=== PATIENT | male | born 1950 | race Caucasian/White ===

== ENCOUNTER 2016-05-11 06:32 | Emergency (ER) | payer MEDICARE ==
[2016-05-11 07:03] LABS: Hematocrit 46.6 % (42.0-52.0); Hemoglobin 15.9 gm/dL (13.5-18.0); Mean Cell Volume 87.8 fl (78-100); Mean Corpuscular Hemoglobin 29.9 pg (27-31); Mean Corpuscular Hgb Conc 34.1 g/dl (32-36); Mean Platelet Volume 8.3 fl (6.0-9.5); Neutrophil # 2.4 K/mm3 (1.3-6.0); Neutrophil % 48.4 % (42-75.0); Platelet Count 178 K/mm3 (150-450); Red Blood Count 5.31 M/mm3 (4.7-6.0); Red Cell Distribution Width 12.2 % (11.5-14.0)
[2016-05-11] MEDS ORDERED: ACETAMINOPHEN 325 MG TABLET PO ONE (07:03)
--- NOTE | 2016-05-11 07:05 | ERNOTE ---
Chest Pain/Cardiac HPI Date of Service: 05/11/16 Chief Complaint: Chest Pain Source: patient Immunizations: IMMUNIZATION HX Immunizations Comment shingles immunization History of Influenza Vaccine Yes Allergies/Adverse Reactions: Allergies Penicillins Allergy (Verified 05/11/16 06:43) possible allergy Home Medications: HOME MEDICATIONS Aspirin [Garry Chewable Aspirin] 81 mg PO HS 01/18/13 [Last Taken 01/17/13 21:00 ] Atenolol/Chlorthalidone [Tenoretic 100 Tablet] 50 mg PO DAILY 01/18/13 [Last Taken 01/17/13 18:00] Enalapril Maleate [Vasotec] 20 mg PO DAILY 01/18/13 [Last Taken 01/17/13 12:00] Fexofenadine HCl [Isabela] 30 mg PO DAILY 01/18/13 [Last Taken 01/18/13 05:30] Potassium Chloride [Klor-Con] 10 meq PO BID 01/18/13 [Last Taken 01/18/13 05:30] Simvastatin [Zocor] 40 mg PO HS 01/18/13 [Last Taken 01/17/13 20:00] Olopatadine HCl [Patanase] 30.5 gm NS DAILY 09/18/13 [Last Taken Unknown] Omeprazole [Prilosec] 20 mg PO DAILY 03/28/16 [Last Taken Unknown] Zolpidem Tartrate [Ambien] 5 mg PO HS 03/28/16 [Last Taken Unknown] Narrative: 66 year old that had experienced substernal chest pain yesterday at 1800 hours which resolved. This morning he noticed mild upper midback pain that he has had intermittently for several years. No pain medications were taken this morning prior to being seen in the ED. The pain typically aggravated by him working out with weights, that he does several times per day. His routine is doing curls and bench presses several times during the day. Typically walks 5-6 miles per day without difficulty. His primary care physician has scheduled a cardiac stress test. The patient admits to having anxiety and does not have any previous history of heart disease. Date (Duration): 05/11/16 Timing: constant Severity/Quality: mild Location: back Body Front/Back Adult: 1 - Area of pain Chest Pain Radiation: other - to chest Activities at Onset: none Modifying Factors - Improves: Present: other - none Modifying Factors - Worsens: Present: other - movement Nitro Today/Relief: no nitro taken today Associated Symptoms: Present: back pain Prior Chest Pain/Cardiac Workup: Reports: prior chest pain Review of Systems - Review of Systems Constitutional: Present: no symptoms reported EYE: Present: no symptoms reported ENT: Present: no symptoms reported Respiratory: Present: no symptoms reported Cardiology: Present: See HPI Gastrointestinal/Abdominal: Present: no symptoms reported Genitourinary: Present: no symptoms reported Musculoskeletal: Present: no symptoms reported Skin: Present: no symptoms reported Neurological: Present: no symptoms reported Endocrine: Present: no symptoms reported Hematologic/Lymphatic: Present: no symptoms reported Psych: Present: anxiety - Patient's Past Medical History Patient History - Medical: Anxiety Patient History - Cardiac/Respiratory: Hypertension, Hyperlipidemia Patient History - Cancer: No Hx of Cancer Patient History - Surgical Procedures: No surgical history Patient History - Other: None - Social History Living Situations: home Smoking Status: Former smoker - Immunizations History of Influenza Vaccine: Yes Physical Exam - Physical Exam General Appearance: Present: no apparent distress Eye Exam: Normal inspection: bilateral Ears, Nose, Throat: Present: normal ENT inspection Neck: Present: normal inspection, supple Respiratory: Present: no respiratory distress Cardiovascular/Chest: Present: regular rate, rhythm Gastrointestinal/Abdominal: Present: nontender, nondistended, soft, no organomegaly Back Exam: Present: normal inspection, other - minmimal tenderness at the right praspinal musculature Neurological Exam: Present: alert, oriented, normal mood/affect, flame hardener II-XII nml as tested Skin Exam: Present: normal color ED Progress - Vital Signs Patient's Vital Signs:: I have reviewed the patient's vital signs. Vital Signs: Vital Signs 05/11/16 05/11/16 06:38 06:44 Temperature 36.2 C L Pulse Rate 55 L 58 L Respiratory 15 Rate Blood Pressure 177/83 O2 Sat by Pulse 98 Oximetry - EKG EKG: other EKG Comments: sinus dustin, rate 53, normal axis No significant change from the previous EKG. - X-Ray X-Ray #1 X-Ray: chest Interpretation: Interp. by me X-ray Comments: NAD - Progress/Reassessment Chief Complaint: Chest Pain Progress:: Unchanged Progress Note-Subjective: 05/11/16 07:32 The pain that he is having has been ongoing for several years and is due to muscle sprain in all likelyhood. He is encouraged to proceed with the cardiac stress test to better determine the etiology of the pain. Departure - Departure Clinical Impression: Back pain due to injury, Chest pain, musculoskeletal Disposition: Home self-care Condition: Good Instructions: Muscle Strain, [id number], Chest Wall Pain, [id number] Print Language: Eritrean Referrals: Chidi Mcdonald MD [Primary Care Provider] -
[2016-05-11] MEDS ORDERED: ACETAMINOPHEN 325 MG TABLET ONE (07:07)
[2016-05-11 07:21] LABS: Anion Gap 8.8 mmol/L (6.8-13.8); BUN/Creatinine Ratio 17.6 (9.0-21.6); Blood Urea Nitrogen 15 mg/dL (6-23); Calcium * 9.2 mg/dL (7.9-10.9); Carbon Dioxide 30.4 mmol/L (24-32.6); Chloride 106 mmol/L (97-106); Estimated Creat Clear 77.8; Glucose * 124 mg/dL (70-110); Potassium 4.2 mmol/L (3.4-4.6); Sodium 141 mmol/L (132-142); Troponin I Less than 0.017 ng/ml (0.00-0.10)
[2016-05-11 07:29] VITALS: BP 143/80
== END 2016-05-11 07:45 | disposition home or self-care (01) ==
LOC: ER 06:32
DX: S39.92XA Unspecified injury of lower back, initial encounter (principal); R07.89 Other chest pain; Z87.891 Personal history of nicotine dependence; Y93.B1 Activity, exercise machines primarily for muscle strengthening; I10 Essential (primary) hypertension

== ENCOUNTER 2016-07-15 12:27 | Day surgery (SDC) | payer MEDICARE ==
--- NOTE | 2016-07-10 15:17 | HP ---
Chief Complaint - Chief Complaint Date of Service: 07/10/16 Chief Complaint: need my colon checked again. Also still having problems with my stomach. History of Present Illness: 66 year old male who presents for a colonoscopy. No blood in stools. Usually constipated but two weeks ago had diarrhea. No history of polyps that he knows of and he has an uncle with colon cancer. He does not believe his parents had cancer, but both are . He cadena had some lower abdominal burning and cramps and that is not relieved by BMs. He has seen a urologist and had a CT and cystoscopy. (Both of which he says are normal. He also has a history of GERD and recent substernal burning was worked up with a stress test and this was normal, he says. He has been on omeprozole for at least 2 years and still has this "heartburn". He has not an an UGI and has not had symptoms of a cough or hoarseness. No particular foods set this off and a GB US was also done and was negative. He states he had a positive Hpylori in the past. - Patient's Past Medical History Patient History - Medical: Anxiety Patient History - Cardiac/Respiratory: Hypertension, Hyperlipidemia Patient History - Cancer: No Hx of Cancer Patient History - Surgical Procedures: Colonoscopy, EGD, Other - [facility] 1990, ENT - sinus - Family History Family History:: no untoward family reactions to anesthesia, no familial bleeding tendencies, no family history of clotting disorders - Family History Mother Family History - Medical: Family History - Cardiac/Respiratory: Myocardial Infarction Family History - Cancer: No pertinent family hx - Social History Living Situations: alone Psych History: Hx of Anxiety Does anyone smoke in the home?: No Smoking Status: Former smoker - 33 years ago Have you smoked in the past 12 months: No Alcohol Use: occasionally Drug Use: none - Immunizations Immunizations Up to Date: Yes Hx Pneumococcal Vaccination: Yes History of Influenza Vaccine: Yes Review Of Systems (GEN) - Review of Systems Generalized/Overall Review: Absent: Weakness, Chills, Fever, Malaise EENTM: Present: No Symptoms Reported Respiratory: Absent: Cough, Shortness of Breath, Stridor Cardiac: Absent: Chest Pain, Edema, Syncope Abdominal: Present: Abdominal Pain - lower abdominal burning, Constipation, Other - persistent GERD/ substernal burning Musculoskeletal: Present: Back Pain, Muscle Pain. Absent: Joint Pain Neurological: Absent: Headache, Anxiety, Depressed, Parasthesia, Weakness Skin: Absent: Dryness, Lesions, Lumps, Rash Endocrine: Absent: Intolerance to Cold Allergies/Adverse Reactions: Allergies Allergy/AdvReac Type Severity Reaction Status Date / Time Penicillins AdvReac Mild stomach Verified 07/10/16 15:46 ache Home Medications: HOME MEDICATIONS Aspirin [Garry Chewable Aspirin] 81 mg PO HS 01/18/13 [Last Taken 01/17/13 21:00 ] Atenolol/Chlorthalidone [Tenoretic 100 Tablet] 50 mg PO DAILY 01/18/13 [Last Taken 01/17/13 18:00] Enalapril Maleate [Vasotec] 20 mg PO DAILY 01/18/13 [Last Taken 01/17/13 12:00] Fexofenadine HCl [Isabela] 30 mg PO DAILY 01/18/13 [Last Taken 01/18/13 05:30] Potassium Chloride [Klor-Con] 10 meq PO BID 01/18/13 [Last Taken 01/18/13 05:30] Simvastatin [Zocor] 40 mg PO HS 01/18/13 [Last Taken 01/17/13 20:00] Olopatadine HCl [Patanase] 30.5 gm NS DAILY 09/18/13 [Last Taken Unknown] Omeprazole [Prilosec] 20 mg PO DAILY 03/28/16 [Last Taken Unknown] Zolpidem Tartrate [Ambien] 5 mg PO HS 03/28/16 [Last Taken Unknown] Exam - Exam Vital Signs: Vital Signs - Last Taken Temp 36.2 C L 07/10/2016 Pulse 65 Resp BP 130/80 07/10/16 Pulse Ox HT 5'7 WT 70kg Constitutional: Present: Alert, Oriented x3, Cooperative, Well developed, No distress ENT Exam: Present: normal ENT inspection Eye Exam: bilateral eye: normal inspection Back Exam: Present: normal inspection, no CVA tenderness, no vertebral tenderness Breasts: Present: Exam deferred Respiratory: Present: lungs clear, normal breath sounds, no respiratory distress , no accessory muscle use Cardiovascular/Chest: Present: regular rate, rhythm, no edema, no gallop, no JVD , no murmur Abdomen: Present: Normal bowel sounds, soft, nontender, nondistended, no rebound tenderness, hernia - RIH ,reducible, small /Rectal: Present: External genitalia normal Extremity: Present: normal range of motion, non-tender, normal inspection, no pedal edema Skin Exam: Present: normal color, warm/dry, no cyanosis Lymphatic: Present: no adenopathy - groin, inguinal node tender (L) Neurologic: Present: alert, normal mood/affect Appearance: Present: appropriate appearance, appropriate insight, neat, no memory impairment Eye contact: Present: cooperative, good eye contact, normal speech Thoughts: Present: normal thought pattern, no apparent hallucination Assessment/Plan - Narrative Narrative: [facility]IC discussed for an EGD and colonoscopy with possible biopsies and polypectomy. He understands. The prep was discussed. He will do a single day, split prep because he is an afternoon case. - Assessment/Plan (1) Screening for colon cancer Problem: Acute (2) GERD (gastroesophageal reflux disease) Problem: Chronic Qualifiers: Esophagitis presence: esophagitis presence not specified Qualified Code(s) : K21.9 - Gastro-esophageal reflux disease without esophagitis (3) Chest pain, musculoskeletal Problem: Resolved (4) Hypertension Problem: Chronic
[~2016-07-15 12:27] MED LIST: RINGERS SOLUTION,LACTATED 1,000 ML IV PRN
[2016-07-15] MEDS ORDERED: RINGERS SOLUTION,LACTATED 1,000 ML IV PRN (14:02)
--- NOTE | 2016-07-15 14:07 | OR ---
Operative Report - Dictated Report Narrative: DATE: 07/15/2016 PREOPERATIVE DIAGNOSIS: Persistent GERD, screening colonoscopy POSTOPERATIVE DIAGNOSIS: #1 same as above #2 H. pylori pending #3 scattered small amount of sigmoid diverticulosis PROCEDURE: #1 ESOPHAGOGASTRODUODENOSCOPY with biopsy #2 COLONOSCOPY SURGEON: Ankur Vincent M.D. [facility] ANESTHESIA: Gm Lugo CRNA SEDATION INDICATIONS. This is a 66-year-old male who presents with a persistent GERD despite maximal medical therapy and in need of colonoscopy. Risk, benefits, indications and contra indications were discussed with the patient for an EGD with possible biopsy and colonoscopy with possible biopsy and/or polypectomy. The patient understood and agreed and wished to proceed. The patient tolerated the SUPREP well. Procedure: The patient was brought into the operating room theater and placed into the left lateral decubitus position. A bite block was placed and he was given sedation per MABEL. After adequate sedation was obtained, the [employer]oat video gastroscope was introduced and advanced into the pharynx. This appeared to be normal. The vocal cords were seen to be normal. Scope was advanced into the esophagus under direct visualization. The scope was advanced through the esophagus, which was otherwise unremarkable. The GE junction was noted at approximately 40 cm. The scope was advanced through the GE junction into the stomach. The stomach had a relatively normal appearance with no antritis. There was no obvious signs of recent or old bleeding, no signs of ulceration, and there was no obvious abnormalities noted within the stomach body or antrum. The scope was retroflexed and the upper stomach appeared to be normal. GE junction appeared to be normal and no hiatal hernia was noted. The endoscope was then advanced through a somewhat tight pylorus into the pyloric channel , which was normal, and then into an otherwise normal second and third portions of the duodenum. Multiple pictures were taken. The scope was then withdrawn slowly. Biopsy of the antrum was taken for H. pylori. Once again the scope was retroflexed and pictures taken. The Scope was then removed slowly through the stomach and, ultimately at the GE junction, the stomach was decompressed. The GE junction was examined closely. Pictures were taken. The scope was then removed through an otherwise normal-appearing esophagus. Once the scope was removed completely, the patient remained in the left lateral decubitus position and the cart was turned for the colonoscopy. A digital rectal exam was performed. This was noted to be unremarkable. The patient was noted to have no internal or external hemorrhoids. The Olympus video colonoscope was introduced and advanced into the rectum. The rectum was normal in appearance. The scope was then advanced through the sigmoid, where no diverticular disease was noted. The scope was then advanced to the cecum using standard reduction techniques. The prep appeared to be excellent with a [place] prep score of 9. The scope was withdrawn slowly as the ascending, transverse, descending, and sigmoid colon were examined in a circumferential fashion. There were just a few diverticular openings noted in the upper sigmoid. The scope was brought back into the rectum where it was retroflexed and the lower rectum was examined. No internal hemorrhoids were noted. The air was decompressed, and the scope was then removed. Withdrawal time was 10 minutes. POSTOPERATIVE CONDITION: The patient was awakened and taken to the ambulatory surgery center in good condition. No complications were encountered. FINDINGS: Essentially negative upper GI endoscopy, and lower colonoscopy. SPECIMEN: Single biopsy for H. pylori EBL: 0 mls The findings were discussed with the patient. I recommend a follow-up colonoscopy in 10 years for screening purposes. We will call in 48 hours with the biopsy results.
[2016-07-15 15:10] VITALS: BP 151/72
== END 2016-07-15 12:28 | disposition home or self-care (01) ==
LOC: AMB 12:27
PROVIDERS: ATTEND Surgery
PROC: 0DJD8ZZ Inspection of Lower Intestinal Tract, Via Natural or Artificial Opening Endoscopic (ICD-10-PCS; principal; 2016-07-15 13:50)
PROC: 0DB68ZX Excision of Stomach, Via Natural or Artificial Opening Endoscopic, Diagnostic (ICD-10-PCS; 2016-07-15 13:50)
DX: Z12.11 Encounter for screening for malignant neoplasm of colon (principal); K21.9 Gastro-esophageal reflux disease without esophagitis; K57.30 Diverticulosis of large intestine without perforation or abscess without bleeding; I10 Essential (primary) hypertension; E78.5 Hyperlipidemia, unspecified; F41.9 Anxiety disorder, unspecified; Z87.891 Personal history of nicotine dependence; Z68.24 Body mass index [BMI] 24.0-24.9, adult
CPT/HCPCS: 43239; 87081; G0121

== ENCOUNTER 2016-10-07 06:27 | Day surgery (SDC) | payer MEDICARE, OTHER ==
--- NOTE | 2016-10-01 16:43 | HP ---
Chief Complaint - Chief Complaint Date of Service: 10/01/16 Chief Complaint: I would like my hernia fixed History of Present Illness: 66 year old male with an enlarging, but reducible, right inguinal hernia. He has noticed it for many months, but it is getting larger and now more bothersome with activities. He is active and walks 5 miles a day, also does exercises, lifts weights and does about 100 sit ups a day. No symptoms of incarceration, nor constipation, and he had a left inguinal hernia repair about 30 years ago. - Patient's Past Medical History Patient History - Medical: Anxiety Patient History - Cardiac/Respiratory: Hypertension, Hyperlipidemia Patient History - Cancer: No Hx of Cancer Patient History - Surgical Procedures: Colonoscopy, EGD, Other, ENT, Hernia Repair - left Patient History - Other: None - Family History Family History:: no untoward family reactions to anesthesia, no familial bleeding tendencies, no family history of clotting disorders - Family History Mother Family History - Medical: , No pertinent hx Family History - Cardiac/Respiratory: No pertinent hx, Myocardial Infarction Family History - Cancer: No pertinent family hx - Social History Living Situations: alone Abuse History: No History of abuse Psych History: Hx of Anxiety Does anyone smoke in the home?: No Alcohol Use: occasionally Drug Use: none - Immunizations Immunizations Up to Date: Yes Hx Pneumococcal Vaccination: Yes History of Influenza Vaccine: Yes Review Of Systems (GEN) - Review of Systems Generalized/Overall Review: Absent: Weakness, Chills, Malaise, Weight loss, Weight gain EENTM: Absent: Blurred Vision Respiratory: Absent: Cough, Shortness of Breath, Wheezing Cardiac: Absent: Chest Pain, Edema, Palpitations Abdominal: Absent: Nausea, Vomiting, Abdominal Pain, Constipation, Diarrhea Genitourinary: Absent: Burning Musculoskeletal: Absent: Joint Pain, Joint Swelling Neurological: Present: Anxiety. Absent: Headache, Depressed, Parasthesia, Tremors Skin: Absent: Dryness Immunizations: IMMUNIZATION HX Immunizations Up to Date Yes History of Influenza Vaccine Yes Hx Pneumococcal Vaccination Yes Allergies/Adverse Reactions: Allergies Allergy/AdvReac Type Severity Reaction Status Date / Time Penicillins AdvReac Mild stomach Verified 07/15/16 12:54 ache Home Medications: HOME MEDICATIONS Aspirin [Garry Chewable Aspirin] 81 mg PO HS 01/18/13 [Last Taken 01/17/13 21:00 ] Atenolol/Chlorthalidone [Tenoretic 100 Tablet] 50 mg PO DAILY 01/18/13 [Last Taken 01/17/13 18:00] Enalapril Maleate [Vasotec] 20 mg PO DAILY 01/18/13 [Last Taken 01/17/13 12:00] Fexofenadine HCl [Isabela] 30 mg PO DAILY 01/18/13 [Last Taken 01/18/13 05:30] Potassium Chloride [Klor-Con] 10 meq PO BID 01/18/13 [Last Taken 01/18/13 05:30] Simvastatin [Zocor] 40 mg PO HS 01/18/13 [Last Taken 01/17/13 20:00] Olopatadine HCl [Patanase] 30.5 gm NS DAILY 09/18/13 [Last Taken Unknown] Omeprazole [Prilosec] 20 mg PO DAILY 03/28/16 [Last Taken Unknown] Zolpidem Tartrate [Ambien] 5 mg PO HS 03/28/16 [Last Taken Unknown] Tadalafil [Cialis] 5 mg PO DAILY PRN 07/15/16 [Last Taken Unknown] Exam - Exam Vital Signs: Vital Signs - Last Taken Temp 36.4 C L 10/01/16 Pulse 75 Resp 15 BP 135/82 10/01/16 Pulse Ox Ht 5'7 Wt 150# Constitutional: Present: Alert, Oriented x3, Cooperative, Well developed, Looks Younger than stated age ENT Exam: Present: normal ENT inspection, hearing grossly normal Eye Exam: bilateral eye: normal inspection Respiratory: Present: chest non-tender, lungs clear, normal breath sounds, no respiratory distress, no accessory muscle use Cardiovascular/Chest: Present: normal peripheral pulses, regular rate, rhythm, no chest tenderness, no edema, no gallop, no JVD, no murmur Abdomen: Present: Normal bowel sounds, soft, nontender, nondistended, no rebound tenderness, no hepatospenomegaly, no masses, other - left, well healed groin scar and no recurrent inguinal hernia on left, hernia - right, medium sized, reducible /Rectal: Present: External genitalia normal Extremity: Present: normal range of motion, non-tender, normal inspection, no pedal edema, no calf tenderness Skin Exam: Present: normal color, warm/dry Neurologic: Present: no motor/sensory deficits, alert, normal mood/affect, oriented x 3 Appearance: Present: appropriate appearance, appropriate insight, neat Eye contact: Present: cooperative, good eye contact, normal speech Thoughts: Present: normal thought pattern Assessment/Plan - Narrative Narrative: He has a right inguinal hernia, enlarging and now more bothersome with daily activities....he is much more active than the normal 66 yo though. I discussed the risks and benefits of a inguinal hernia repair with mesh and he understands and agrees, and wishes to proceed. Bathing and hibiclens instructions, consent signed and cases scheduled for next week. - Assessment/Plan (1) Inguinal hernia Problem: Acute Qualifiers: Obstruction and gangrene presence: without obstruction or gangrene Laterality: unilateral Recurrence: non-recurrent Qualified Code(s): K40.90 - Unilateral inguinal hernia, without obstruction or gangrene, not specified as recurrent (2) GERD (gastroesophageal reflux disease) Problem: Chronic Qualifiers: (3) Hypertension Problem: Chronic
[~2016-10-07 06:27] MED LIST changes: +ceFAZolin SODIUM 2 GM in DEXTROSE 5 % IN WATER 50 ML IV PRN
[2016-10-07] MEDS ORDERED: RINGERS SOLUTION,LACTATED 1,000 ML IV ONE ×2 (07:20→08:42)
[2016-10-07] MEDS ORDERED: BUPIVACAINE HCL/EPINEPHRINE 50 ML VIAL IJ ONE (08:40)
[2016-10-07] MEDS ORDERED: ONDANSETRON HCL/PF 2 MG/ML VIAL IV PRN (09:11)
[2016-10-07] MEDS ORDERED: MORPHINE SULFATE 2 MG/ML DISP.SYRIN IV PRN (09:11)
[2016-10-07] MEDS ORDERED: RINGERS SOLUTION,LACTATED 1,000 ML IV PRN (09:11)
[2016-10-07] MEDS ORDERED: oxyCODONE HCL/ACETAMINOPHEN 1 TAB TABLET PO PRN (09:11)
--- NOTE | 2016-10-07 09:56 | OR ---
Operative Report - Dictated Report Narrative: DATE: 10/07/2016 PREOPERATIVE DIAGNOSIS: RIGHT INGUINAL HERNIA POSTOPERATIVE DIAGNOSIS: RIGHT INGUINAL HERNIA.(Indirect) OPERATION PERFORMED: RIGHT INGUINAL HERNIA REPAIR WITH MESH SURGEON: Ankur Vincent M.D. [facility] ANESTHESIA: Gm Lugo CRNA GENERAL ANESTHESIA INDICATION: This is a 66-year-old male who presents with a reducible right inguinal hernia. It is bothersome and enlarging. I discussed the risks, benefits, indication, contraindications for an inguinal hernia repair with mesh , and he understood, agreed, and wished to proceed. PROCEDURE: The patient was brought to the operating theater and placed supine position. After adequate general anesthesia, his groin was clipped, prepped and draped in standard fashion. A proper TIMEOUT was performed. 0.5% Marcaine plus epinephrine was used to infiltrate the skin and subcutaneous tissue overlying the hernia. An incision was then made and dissection was carried down through the subcutaneous tissue using cautery. Dasha's fascia was opened with cautery and dissection continued bluntly down to the external oblique. The external oblique was bluntly cleaned and then opened sharply. I continued opening the external oblique medially and laterally with the Metzenbaum scissors. The oblique was then cleaned off superiorly and inferiorly exposing the cord. The cord structures were quite generous there was a lipoma noted. The nerve was identified, was freed and directed upward. The cord structures are bluntly dissected away from the pubic tubercle and a Dianne drain was placed around them. The cord structures were then closely examined and a hernia sac was identified. It was dissected away from the cord structures. The hernia sac was quite well-developed. The hernia sac was opened and a finger was placed through the floor and there was not noted to be a direct hernia, femoral hernia, or sliding component. The lipoma was also dissected away from the cord structures and reduced through the internal ring, as a natural plug. Using 2-0 Vicryl, a stick tie was performed at the base of the hernia sac and the hernia sac was amputated. The stump was cauterized, and after noted to be dry, and was allowed to retract through the internal ring. The internal ring was generous the floor was weak but without a direct component. Using 0 Vicryl, the rather lax internal oblique was brought down to the ilioinguinal ligament with interrupted sutures. The medial suture was placed into Aime's ligament. This reinforced the floor and made a smaller internal ring. This was a modified Bassini type repair. A small piece of Softmesh was then placed onto the floor and secured to the previously placed 0 Vicryl sutures along the ilioinguinal ligament. The tails of the mesh were brought around the cord structures and secured to themselves, and also to the ilioinguinal ligament laterally. Superiorly, the mesh was tacked to the internal oblique with interrupted 0 Vicryls. This gave a nice, solid repair to the floor and a small internal ring. The deep tissues were then infiltrated with the remainder of the Marcaine. The cord was replaced into its normal anatomic position, as was the nerve. The external oblique was then closed with a running 3-0 Vicryl. Dasha's was reapproximated with interrupted 3-0 Vicryl. The skin was closed with 4-0 undyed Vicryl in a subcuticular fashion. Steri-Strips and a slight pressure dressing was applied. The testicle was noted to be in its normal anatomic position. The patient was awakened and extubated. No complications were encountered. FINDINGS: Indirect hernia, small lipoma of the cord that was reduced, not removed. EBL: Minimal SPECIMEN: 1 (hernia sac) POSTOPERATIVE CONDITION: THE PATIENT WAS TAKEN TO THE RECOVERY ROOM IN GOOD CONDITION.
[2016-10-07 10:57] VITALS: BP 127/65
--- NOTE | 2016-10-07 11:55 | PATH ---
PHYSICIAN: Ankur Vincent MD LAB#: [id number] SPECIMEN DATE: 10/07/2016 SPECIMEN: Hernia sac right inguinal CLINICAL INFORMATION: Right inguinal hernia. Patient underwent right inguinal hernia repair GROSS DESCRIPTION: The specimen is received in a formalin filled container appropriately designated, " hernia sac right inguinal." Specimen consists of a 1.5 x 0.5 x 0.4 cm [place]a-benz membranous soft tissue fragment. Specimen is divided perpendicular to the long axis and entirely submitted in a single cassette. DIAGNOSIS: SOFT TISSUE, RIGHT INGUINAL AREA, REPAIR OF HERNIA: -HERNIA SAC WITH BENIGN REACTIVE CHANGES COMMENT: Fibrosis, hyperemia and mild focal reactive mesothelial proliferation is present. NO evidence of malignant neoplasia.
== END 2016-10-07 06:28 | disposition home or self-care (01) ==
LOC: AMB 06:27
PROVIDERS: ATTEND Surgery
PROC: 0YU50JZ Supplement Right Inguinal Region with Synthetic Substitute, Open Approach (ICD-10-PCS; principal; 2016-10-07 08:15)
DX: K40.90 Unilateral inguinal hernia, without obstruction or gangrene, not specified as recurrent (principal); I10 Essential (primary) hypertension; E78.5 Hyperlipidemia, unspecified; F41.9 Anxiety disorder, unspecified; K21.9 Gastro-esophageal reflux disease without esophagitis; Z68.23 Body mass index [BMI] 23.0-23.9, adult